=== PATIENT | female | born 1940 | race Caucasian/White ===

== ENCOUNTER 2021-10-25 07:22 | Day surgery (SDC) | payer MEDICARE, BC ==
[2021-10-23 11:48] LABS: BASOPHILS # (AUTO) 0.1 X10'3 (0-0.2); BASOPHILS % (AUTO) 1.4 % (0-1); EOSINOPHILS # (AUTO) 0.2 X10'3 (0-0.9); EOSINOPHILS % (AUTO) 2.6 % (0-6); LYMPHOCYTES % (AUTO) 27.9 % (21-51); MEAN CORPUSCULAR HGB CONC 33.3 g/dL (33.0-36.5); MEAN CORPUSCULAR VOLUME 90.2 FL (78-98); MEAN PLATELET VOLUME 9.5 FL (7.4-10.4); MONOCYTES # (AUTO) 0.4 X10'3 (0-0.9); MONOCYTES % (AUTO) 5.9 % (2-12); NEUTROPHILS # (AUTO) 4.5 X10'3 (1.8-7.7); NEUTROPHILS % (AUTO) 62.2 % (42-75); PRE OP HEMOGLOBIN 13.7 g/dL (12.0-16.0); PRE OP PLATELET COUNT 277 X10'3 (140-440); RED BLOOD COUNT 4.55 X10'6 (4.20-5.60)
[2021-10-23 12:03] LABS: ALBUMIN 3.5 G/DL (3.4-5.0); ALKALINE PHOSPHATASE 91 IU/L (46-116); BLOOD UREA NITROGEN 17 MG/DL (7-18); CALCIUM 8.8 MG/DL (8.5-10.1); CHLORIDE 103 MMOL/L (99-107); CREATININE 0.68 MG/DL (0.40-0.90); PRE OP ALT 28 U/L (30-65); PRE OP ANION GAP 9 (8-16); PRE OP AST 23 U/L (10-37); PRE OP BILIRUB, TOTAL 0.4 MG/DL (0.0-1.0); PRE OP GLUCOSE 91 MG/DL (70-104); PRE OP POTASSIUM 3.7 MMOL/L (3.4-5.1); PRE OP SODIUM 139 MMOL/L (135-145); TOTAL CARBON DIOXIDE 27.3 MMOL/L (24-32); eGFR 83 ML/MIN
[~2021-10-25] VITALS: Ht 160 cm; Wt 80.0 kg
[2021-10-25] VITALS (11 sets, daily range): BP systolic 130–155; BP diastolic 57–118
[~2021-10-25 07:22] MED LIST: AMLO2.5T2 PO; ASPI-1265 PO; BUPIVAcaine 0.5% inj/PF 30 ML ONE; CALC-336 PO; CELE-193 PO; CHOL200012 PO; DOCUMENT DATE & TIME OF BETA-BLOCKER PO ONE; LEVO75TA PO; LOSA25TA96 PO; METO-539 PO; MULT-1130 PO; MULT-227 PO; PANT-47 PO; SEMA1PEN3 SQ; TURM500C4 PO; VIT1CAPS9 PO; cefazolin/dext.iso 2gm/50ml IV ONE; famotidine 20mg tablet PO ONE; ringers solution, lacted 1,000 ML IV SCH
[2021-10-25] MEDS ORDERED: LIDOcaine 0.5% (5mg/ml) 50ml vial ONE (08:15)
[2021-10-25] MEDS ORDERED: BUPIVAcaine 0.5% inj/PF 30 ML ONE (08:52)
[2021-10-25] MEDS ORDERED: LIDOcaine 1% 30ml preserv. free vial ONE (08:55)
[2021-10-25] MEDS ORDERED: FENTANYL CITRATE/PF 50 MCG/1 ML VIAL ONE (09:01)
[2021-10-25] MEDS ORDERED: ketorolac trometh. 30mg/ml inj. ONE (09:01)
[2021-10-25] MEDS ORDERED: midazolam 1 mg/ML 2ml injection ONE (09:01)
[2021-10-25] MEDS ORDERED: ondansetron/PF 4mg/2ml inj IV PRN (09:25)
[2021-10-25] MEDS ORDERED: morphine 2 MG/ML inj. syringe IV PRN (09:25)
[2021-10-25] MEDS ORDERED: ringers solution, lacted 1,000 ML IV SCH (09:25)
[2021-10-25] MEDS ORDERED: proCHLORperazine 10 MG/2 ml inj IV PRN (09:25)
[2021-10-25] MEDS ORDERED: meperidine/PF 25mg/ml syringe IV PRN ×3 (09:25)
[2021-10-25] MEDS ORDERED: morphine 4 MG/ML inj SYRINge IV PRN (09:25)
--- NOTE | 2021-10-25 09:59 | NUR ---
Received from OR via NIC , accompanied by Anesthesiologist DR TOSCANO and report given by Anesthesiolgist. PT PRESENTS WITH PIV 20G RIGHT FOREARM, DRESSING ON LEFT HAND CDI, VSS. Addendum: 10/25/21 at 1007 by Corie Erickson RN, RN Amended: Links added.
--- NOTE | 2021-10-25 11:39 | NUR ---
I HAVE REVIEWED D/C INSTRUCTIONS WITH PATIENT AND THEY HAVE VERBALIZED UNDERSTANDING OF INSTRUCTIONS. PATIENT D/C HOME WITH ALL BELONGINGS AND FAMILY GAVE TRANSPORT Addendum: 10/25/21 at 1204 by Corie Erickson RN, RN Amended: Links added.
== END 2021-10-25 11:39 | disposition home or self-care (01) ==
LOC: PAS 07:22
PROVIDERS: ATTEND Orthopaedic Surgery Hand Surgery
DX: G56.02 Carpal tunnel syndrome, left upper limb (principal); M35.3 Polymyalgia rheumatica; I10 Essential (primary) hypertension; E03.9 Hypothyroidism, unspecified; K21.9 Gastro-esophageal reflux disease without esophagitis; I47.1 Supraventricular tachycardia; Z20.822 Contact with and (suspected) exposure to COVID-19; Z79.899 Other long term (current) drug therapy; Z79.82 Long term (current) use of aspirin; Z88.2 Allergy status to sulfonamides; Z72.89 Other problems related to lifestyle; Z98.84 Bariatric surgery status; Z90.710 Acquired absence of both cervix and uterus; Z98.890 Other specified postprocedural states; Z80.1 Family history of malignant neoplasm of trachea, bronchus and lung
CPT/HCPCS: 36415; 64721; 80053; 82948; 85025; 87635; 93005; C9803; J1885; J2250; J3010; J3490; J7030; J7120; S0020; Z7506; Z7512; A4215

== ENCOUNTER 2024-11-14 10:39 | Outpatient (CLI) | payer MEDICARE, BC ==
[~2024-11-14 10:39] MED LIST changes: -BUPIVAcaine 0.5% inj/PF 30 ML ONE; -DOCUMENT DATE & TIME OF BETA-BLOCKER PO ONE; +IODIXANOL 320 MG/ML INFUS..BTL 100ML IV ONE; +LOSA-415 PO; -LOSA25TA96 PO; -cefazolin/dext.iso 2gm/50ml IV ONE; -famotidine 20mg tablet PO ONE; -ringers solution, lacted 1,000 ML IV SCH
[2024-11-14 11:24] LABS: ALANINE AMINOTRANSFERASE 47 U/L (12-78); ALBUMIN 3.5 G/DL (3.4-5.0); ALKALINE PHOSPHATASE 90 IU/L (46-116); ANION GAP 4 (8-16); ASPARTATE AMINO TRANSFERASE 34 U/L (10-37); BILIRUBIN,TOTAL 0.6 MG/DL (0.1-1.0); BLOOD UREA NITROGEN 18 MG/DL (7-18); BUN/CREATININE RATIO 28.1 (10.0-20.0); CHLORIDE 105 MMOL/L (99-107); CREATININE 0.64 MG/DL (0.40-0.90); GLUCOSE 97 MG/DL (70-104); POTASSIUM 3.7 MMOL/L (3.5-5.1); SODIUM 139 MMOL/L (135-145); TOTAL CARBON DIOXIDE 29.6 MMOL/L (24-32); TOTAL PROTEIN 7.1 G/DL (6.4-8.2); eGFR 88 ML/MIN
[2024-11-14 11:29] LABS: PRO BRAIN NATRIURETIC PEPTIDE 625 PG/ML (0-450)
[2024-11-14 11:44] LABS: BASOPHILS # (AUTO) 0.1 X10'3 (0-0.2); BASOPHILS % (AUTO) 0.8 % (0-1); EOSINOPHILS # (AUTO) 0.3 X10'3 (0-0.9); EOSINOPHILS % (AUTO) 2.9 % (0-6); HEMATOCRIT 42.3 % (35.0-45.0); HEMOGLOBIN 14.1 g/dl (12.0-16.0); LYMPHOCYTES # (AUTO) 3.1 X10'3 (1.1-4.8); LYMPHOCYTES % (AUTO) 34.7 % (21-51); MEAN CORPUSCULAR HEMOGLOBIN 30.3 PG (27.0-31.0); MEAN CORPUSCULAR HGB CONC 33.3 g/dL (33.0-36.5); MEAN PLATELET VOLUME 9.4 FL (7.4-10.4); MONOCYTES # (AUTO) 0.5 X10'3 (0-0.9); MONOCYTES % (AUTO) 5.2 % (2-12); NEUTROPHILS % (AUTO) 56.4 % (42-75); PLATELET COUNT 238 X10'3 (140-440); RED BLOOD COUNT 4.65 X10'6 (4.20-5.60); RED CELL DISTRIBUTION WIDTH 13.5 % (11.5-14.5); WHITE BLOOD COUNT 8.9 X10'3 (4.5-11.0)
[2024-11-14] MEDS ORDERED: IODIXANOL 320 MG/ML INFUS..BTL 100ML IV ONE (11:45)
[2024-11-14 11:57] LABS: APTT 27 SECONDS (22-32); INR 1.1 INR; PROTHROMBIN TIME 10.9 SECONDS (9.0-12.0)
== END 2024-11-14 23:59 | disposition home or self-care (01) ==
LOC: RAD 10:39
PROVIDERS: ATTEND Internal Medicine Cardiovascular Disease
DX: J98.4 Other disorders of lung (principal); I35.0 Nonrheumatic aortic (valve) stenosis; R06.02 Shortness of breath; I65.29 Occlusion and stenosis of unspecified carotid artery; J98.11 Atelectasis; M43.8X6 Other specified deforming dorsopathies, lumbar region; R59.0 Localized enlarged lymph nodes; Z90.49 Acquired absence of other specified parts of digestive tract
CPT/HCPCS: 36415; 71046; 71275; 74174; 75572; 80053; 83880; 85025; 85610; 85730; Q9967